=== PATIENT | female | born 1995 | race Caucasian/White ===

== ENCOUNTER 2020-03-01 14:27 | Outpatient (REF) | payer OTHER, SELFPAY ==
--- NOTE | 2020-03-01 13:40 | PAPFT_PTH ---
PATIENT: Meka Lakhani LOC: [facility] U#:[id number] AGE/SX: 24/F ROOM: RE03/01/[address]: TORRES Espan[place] : 1995 BED: DIS: 03/01/2020 SPEC #: [id number] RECD: 03/01/20 15:05 STATUS: TROY REGisselle #: [id number] ROD: 03/01/20 13:[address]: Alice Welch DEPT: [facility] Cytology RECD BY: La Nena Cespedes ENTERED: 03/01/20 15:05 SP TYPE: PAPFT OTHR DR: Eduardo Callahan MD Tissues: 1 - CX/ENDOCX FOR PAP SMEARS Procedures: PAP THIN PREP/[facility] Screening Comments: [id number] (UNSATISFACTORY FOR EVALUATION)
[2020-03-02 14:39] LABS: Chlamydia Result Negative (Negative); GC Result Negative (Negative)
== END 2020-03-01 14:47 ==
LOC: LBN 14:27
PROVIDERS: PCP Pediatrics; Visit Provider Nurse Practitioner Family
DX: Z11.3 Encounter for screening for infections with a predominantly sexual mode of transmission (principal); Z12.4 Encounter for screening for malignant neoplasm of cervix; R87.615 Unsatisfactory cytologic smear of cervix
CPT/HCPCS: 87491; 87591; 88142

== ENCOUNTER 2021-05-14 17:47 | Outpatient (REF) | payer BC, SELFPAY ==
--- NOTE | 2021-05-14 14:00 | PAPFT_PTH ---
PATIENT: Meka Lakhani LOC: N U#:[id number] AGE/SX: 25/F ROOM: RE05/14/[address]: TORRES Espana : 1995 BED: DIS: 05/14/2021 SPEC #: [id number] RECD: 05/14/21 18:21 STATUS: TROY REQ #: [id number] ROD: 05/14/21 14:[address]: Alice Welch DEPT: [facility] Cytology RECD BY: La Nena Cespedes ENTERED: 05/14/21 18:21 SP TYPE: PAPFT OTHR DR: Unknown,Unknown Tissues: 1 - CX/ENDOCX FOR PAP SMEARS Procedures: PAP THIN PREP/[facility] Screening Comments: [id number]
== END 2021-05-14 17:48 | disposition home or self-care (01) ==
LOC: LBN 17:47
PROVIDERS: Visit Provider Nurse Practitioner Family
DX: Z12.4 Encounter for screening for malignant neoplasm of cervix (principal); Z01.419 Encounter for gynecological examination (general) (routine) without abnormal findings
CPT/HCPCS: 88142